=== PATIENT | male | born 1955 | race Caucasian/White ===

== ENCOUNTER 2018-07-18 13:09 | Emergency (ER) | payer OTHER ==
[2018-07-18 13:45] VITALS: BP 136/69
--- NOTE | 2018-07-18 14:00 | EDM.PDOC ---
ED HPI GENERAL MEDICAL PROBLEM - General Chief Complaint: General Stated Complaint: HEART ATTACK SYMPTOMS Time Seen by Provider: 07/18/18 13:45 Source of Information: Reports: Patient, Family History Limitations: Reports: No Limitations - History of Present Illness INITIAL COMMENTS - FREE TEXT/NARRATIVE: 62-year-old male concerned about some recurring burning sensations in his forearms and posterior neck several times over the past 3 days. No significant shortness of breath or diaphoresis. The pain is deep in his forearms, feel somewhat better if he puts pressure on them. He feels better if he is actively working or active, and he does have a significant amount of stress. History of ulcerative colitis with a complete colectomy at age 21. No other significant medical issues. Onset: Unknown/Unsure Duration: Other (Symptoms wax and wane and occur for several minutes) Improves with: Reports: Other (Seemed to improve when active) Associated Symptoms: Reports: Other (Underlying stress is significant) - Related Data Allergies Allergy/AdvReac Type Severity Reaction Status Date / Time mefloquine [From Lariam] Allergy Vomiting Verified 03/19/16 13:19 Home Meds: Home Meds Tamsulosin [Flomax] 0.4 mg PO DAILY 03/19/16 [History] Zolpidem [Ambien] 5 mg PO BEDTIME PRN 07/18/18 [History] Past Medical History Gastrointestinal History: Reports: Other (See Below) Other Gastrointestinal History: ileostomy pouch Genitourinary History: Reports: Neurogenic Bladder, Other (See Below) Other Genitourinary History: difficulty urinating, following urology, enlarged prostate Hematologic History: Reports: Blood Transfusion(s) - Infectious Disease History Infectious Disease History: Reports: Chicken Pox - Past Surgical History HEENT Surgical History: Reports: Tonsillectomy GI Surgical History: Reports: Other (See Below) Male Surgical History: Reports: Other (See Below) Other Male Surgeries/Procedures: bladder stones removed Social & Family History - Tobacco Use Smoking Status *Q: Never Smoker - Caffeine Use Caffeine Use: Reports: Soda - Recreational Drug Use Recreational Drug Use: No ED ROS GENERAL - Review of Systems Review Of Systems: See Below Constitutional: Denies: Fever, Chills, Malaise HEENT: Reports: No Symptoms Respiratory: Denies: Shortness of Breath Cardiovascular: Reports: Lightheadedness. Denies: Chest Pain, Palpitations GI/Abdominal: Reports: No Symptoms Musculoskeletal: Reports: Other (Burning sensation in his posterior neck and arms bilaterally) Skin: Reports: No Symptoms Neurological: Reports: Dizziness. Denies: Headache Psychiatric: Reports: Anxiety ED EXAM, GENERAL - Physical Exam Exam: See Below Exam Limited By: No Limitations General Appearance: Alert, No Apparent Distress Eye Exam: Bilateral Eye: Normal Inspection Head: Atraumatic Neck: Normal Inspection. No: Carotid Bruit, Lymphadenopathy (R), Lymphadenopathy (L) Respiratory/Chest: No Respiratory Distress, Lungs Clear Cardiovascular: Regular Rate, Rhythm GI/Abdominal: Soft, Non-Tender, Other (Right colostomy present) Extremities: No: Pedal Edema Neurological: Alert, Oriented, No Motor/Sensory Deficits Psychiatric: Anxious Skin Exam: Warm, Dry Course - Vital Signs Last Recorded V/S: Last Vital Signs Temp 95.8 F 07/18/18 15:26 Pulse 46 L 07/18/18 15:26 Resp 8 L 07/18/18 15:26 BP 136/69 07/18/18 15:26 Pulse Ox 100 07/18/18 15:26 - Orders/Labs/Meds Labs: Laboratory Tests 07/18/18 07/18/18 Range/Units 13:55 13:55 WBC 5.3 (4.5-11.0) K/uL RBC 4.75 (4.30-5.90) M/uL Hgb 14.6 (12.0-15.0) g/dL Hct 43.4 (40.0-54.0) % MCV 91 (80-98) fL MCH 31 (27-31) pg MCHC 34 (32-36) % Plt Count 204 (150-400) K/uL Neut % (Auto) 66 (36-66) % Lymph % (Auto) 26 (24-44) % [place] % (Auto) 6 (2-6) % Eos % (Auto) 2 (2-4) % Baso % (Auto) 0 (0-1) % Sodium 140 (140-148) mmol/L Potassium 4.3 (3.6-5.2) mmol/L Chloride 105 (100-108) mmol/L Carbon Dioxide 26 (21-32) mmol/L Anion Gap 8.6 (5.0-14.0) mmol/L BUN 20 H (7-18) mg/dL Creatinine 1.2 (0.8-1.3) mg/dL Est Cr Clr Drug Dosing 66.75 mL/min Estimated GFR (MDRD) > 60 (>60) Glucose 96 (74-106) mg/dL Calcium 9.2 (8.5-10.1) mg/dL Total Bilirubin 0.4 (0.2-1.0) mg/dL AST 16 (15-37) U/L ALT 24 (12-78) U/L Alkaline Phosphatase 62 (46-116) U/L Troponin I < 0.017 (0.000-0.056) ng/mL Total Protein 6.6 (6.4-8.2) g/dL Albumin 3.8 (3.4-5.0) g/dL Globulin 2.8 (2.3-3.5) g/dL Albumin/Globulin Ratio 1.4 (1.2-2.2) - Re-Assessments/Exams Free Text/Narrative Re-Assessment/Exam: 07/18/18 13:59 Patient is in a perfect sinus rhythm on the case monitor with normal vitals. CBC CMP and troponin were obtained. This does not sound like a cardiac source. 07/18/18 14:57 Patient remained asymptomatic with normal vitals while in the emergency room. Troponin is 0 and all rest of his labs are normal as well. He was reassured, can return anytime if worsening. Departure - Departure Time of Disposition: 15:27 Disposition: Home, Self-Care 01 Condition: Good Clinical Impression: Myalgia - Discharge Information Instructions: Musculoskeletal Pain Referrals: Edinson Murdcok MD [Primary Care Provider] - Forms: ED Department Discharge Care Plan Goals: Continue activity as tolerated, stay hydrated and return anytime if symptoms worsen or you develop other concerns.
== END 2018-07-18 15:15 | disposition home or self-care (01) ==
LOC: JP.ED 13:09
DX: M79.10 Myalgia, unspecified site (principal); Z79.899 Other long term (current) drug therapy; Z88.8 Allergy status to other drugs, medicaments and biological substances
CPT/HCPCS: 36415; 80053; 84484; 85025; 99283